=== PATIENT | female | born 1995 | race Caucasian/White ===

== ENCOUNTER 2019-03-31 19:23 | Emergency (ER) | payer MEDICAID ==
[2019-03-31] MEDS: FAMOTIDINE 20 MG TAB PO (20:48)
[2019-03-31] MEDS: predniSONE 20 MG TAB PO (20:48)
[2019-03-31] MEDS: DIPHENHYDRAMINE 50 MG CAP PO (20:48)
== END 2019-03-31 21:46 | disposition home or self-care (01) ==
LOC: FTE 19:23
DX: L50.9 Urticaria, unspecified (principal)
CPT/HCPCS: 99283; J7512